=== PATIENT | male | born 1995 | race Caucasian/White ===

== ENCOUNTER 2019-01-01 22:28 | Emergency (ER) | payer SELFPAY ==
[~2019-01-01] VITALS: Ht 185.4 cm; Wt 72.5 kg
[2019-01-02] MEDS ORDERED: cefTRIAXone 1,000 MG/2.86 ml vial (IM ONLY) IM SCH (01:15)
[2019-01-02] MEDS ORDERED: LIDOCAINE 1% INJ 20 ML 20 ML VIAL INJ ONE (01:15)
[2019-01-02] MEDS ORDERED: AZITHROMYCIN 250 MG TAB (ZITHROMAX) PO ONE (01:15)
[2019-01-02] MEDS ORDERED: CEFD300C3 PO (01:18)
[2019-01-02] MEDS ORDERED: BENZ100C18 PO (01:18)
[2019-01-02] MEDS ORDERED: GUAI1TBM19 PO (01:18)
[2019-01-02] MEDS ORDERED: AZIT500T PO (01:18)
[2019-01-02] MEDS ORDERED: METH4TAB PO (01:18)
--- NOTE | 2019-01-02 01:18 | ED Cough/URI ---
General Chief Complaint: Cough/Cold/Flu Symptoms Stated Complaint: COUGHING UP MUCAS Nursing Triage Note: STATES TESTED POSITIVE FOR INFLUENZA A AND B 1 WEEK AGO AND IS NOW COUGHING UP A LOT OF MUCUS WITH A CONSTANT COUGH R/T A "TICKLE IN MY THROAT" Sepsis Screen: No Definite Risk Source: patient History of Present Illness Date Seen by Provider: Jan 01, 2019 Time Seen by Provider: 22:53 Initial Comments PT ARRIVES VIA POV FROM HOME C/O PRODUCTIVE COUGH WITH CLEAR SPUTUM FOR A WEEK HAS HAD ALOT OF NASAL DRAINAGE AND CHEST CONGESTION C/O SORE THROAT NO FEVER NO CHEST PAIN OR SHORTNESS OF BREATH GIRLFRIEND HAS SAME SYMPTOMS PT STATES HE WENT TO [facility] A WEEK AGO, AND STATES HE WAS TOLD HE HAD "INFLUENZA A AND B AND BRONCHITIS" PT STATES NO RX'S WERE GIVEN PT HAS NOT TAKEN ANY OVER THE COUNTER MEDICATIONS FOR SYMPTOMS SYMPTOMS NO DIFFERENT TONIGHT NO HISTORY OF RESPIRATORY PROBLEMS PCP: NONE. PT LIVES IN [place], [place] Allergies and Home Medications Allergies Coded Allergies: No Known Drug Allergies (Unverified , 01/01/19) Home Medications Azithromycin 500 Mg Tablet, 500 MG PO DAILY FOR INFECTION Prescribed by: JAMAL TURNER on 01/02/19117 Benzonatate 100 Mg Capsule, 1-2 TAB PO TID Prescribed by: JAMAL TURNER on 01/02/19117 Cefdinir 300 Mg Capsule, 300 MG PO BID Prescribed by: JAMAL TURNER on 01/02/19117 Guaifenesin/Dextromethorphan 1 Each Tbmp.12hr, 1 EACH PO BID Prescribed by: JAMAL TURNER on 01/02/19117 Methylprednisolone 4 Mg Tab.ds.pk, 4 MG PO UD Prescribed by: JAMAL TURNER on 01/02/19117 Patient Home Medication List Home Medication List Reviewed: Yes Review of Systems Review of Systems Constitutional: no symptoms reported; No fever EENTM: see HPI, nose congestion, throat pain Respiratory: see HPI, cough, phlegm; No short of breath, No wheezing Cardiovascular: no symptoms reported Gastrointestinal: no symptoms reported Genitourinary: no symptoms reported Musculoskeletal: no symptoms reported Skin: no symptoms reported Psychiatric/Neurological: No Symptoms Reported; Denies Headache Hematologic/Lymphatic: No Symptoms Reported Immunological/Allergic: no symptoms reported Past Yccvnfz-Qioyyu-Dxyuyi Hx Patient Social History Alcohol Use: Past History (HX OF HEAVY USE) Recreational Drug Use: Yes (METH, THC--DENIES IV USE) Drug of Choice: THC, METH--DENIES IV USE Smoking Status: Current Everyday Smoker (1 PPD) Type Used: Cigarettes (1 PPD) Recent Foreign Travel: No Contact w/Someone Who Travel: No Recent Infectious Disease Expo: No Physical Abuse: No Sexual Abuse: No Mistreated: No Fear: No Past Medical History Surgeries: No Respiratory: No Cardiac: No Neurological: No Genitourinary: No Gastrointestinal: No Musculoskeletal: No Endocrine: No HEENT: No Cancer: No Psychosocial: Yes (STATES HE WAS PLACED ON [place] 3 MONTHS AGO, WHILE HE WAS IN CARE HOME FOR "SCHIZOPHRENIA" BUT HAS NEVER FOLLOWED UP WITH ANYONE SINCE HE WAS RELEASED 3 MONTHS AGO. PER PT ON 01/01/19. PT HAS ALSO BEEN IN [facility]. ) Integumentary: No Blood Disorders: No Physical Exam Vital Signs - First Documented 01/01/19 22:33 Temp 37.2 Pulse 93 Resp 20 B/P (MAP) 130/75 (93) Pulse Ox 97 O2 Delivery Room Air Capillary Refill : Less Than 3 Seconds Height: '" Weight: lbs. oz. kg; 21.00 BMI Method: General Appearance: WD/WN, no apparent distress, thin HEENT: PERRL/EOMI, TMs normal, pharyngeal erythema; No tonsillar exudate; other (NASAL MUCOSAL EDEMA, CLEAR POST NASAL DRAINAGE. ) Neck: non-tender, full range of motion, supple, normal inspection; No lymphadenopathy (R), No lymphadenopathy (L) Respiratory: normal breath sounds, no respiratory distress, no accessory muscle use Cardiovascular: regular rate, rhythm, no murmur Gastrointestinal: soft Extremities: normal inspection, normal capillary refill Neurologic/Psychiatric: first officer II-XII nml as tested, no motor/sensory deficits, alert, normal mood/affect, oriented x 3 Skin: normal color, warm/dry Progress/Results/Core Measures Suspected Sepsis Recent Fever Within 48 Hours: No Infection Criteria Present: None New/Unexplained Altered Menta: No Sepsis Screen: No Definite Risk SIRS Temperature: Pulse: 93 Respiratory Rate: 20 Blood Pressure 130 /75 Mean: 93 Results/Orders Lab Results Laboratory Tests Test 01/01/19 23:12 Range/Units Group A Streptococcus Screen NEGATIVE NEGATIVE Micro Results Microbiology 01/01/19 Influenza Types A,B Antigen (KAREL) - Final, Complete My Orders Orders - JAMAL TURNER DO Rapid Strep A Screen (01/01/19 23:00) Influenza A And B Antigens (01/01/19 23:00) Chest Pa/Lat (2 View) (01/02/19 00:01) Ceftriaxone For Im Use (Rocephin For Im (01/02/19 01:15) Lidocaine 1% Inj 20 Ml (Xylocaine 1% Inj (01/02/19 01:15) Azithromycin Tablet (Zithromax Tablet) (01/02/19 01:15) Medications Given in ED Current Medications Medications Dose Ordered Sig/Clarice Route Start Time Stop Time Status Last Admin Dose Admin Azithromycin 500 mg ONCE ONCE PO 01/02/19 01:15 01/02/19 01:16 DC 01/02/19 01:22 500 MG Lidocaine HCl 2.1 ml ONCE ONCE INJ 01/02/19 01:15 01/02/19 01:16 DC 01/02/19 01:23 2.1 ML Vital Signs/I&O 01/01/19 01/01/19 01/02/19 22:33 22:33 01:30 Temp 37.2 37.2 Pulse 93 73 Resp 20 18 B/P (MAP) 130/75 (93) 114/74 (93) Pulse Ox 97 98 O2 Delivery Room Air Room Air Capillary Refill : Less Than 3 Seconds Blood Pressure Mean: 93 Diagnostic Imaging Comments CXR--? RLL/ RML INFILTRATES ? --PENDING RADIOLOGIST REVIEW Departure Impression Primary Impression: POSSIBLE PNEUMONIA Additional Impressions: Pharyngitis Upper respiratory infection Disposition: 01 HOME, SELF-CARE Condition: Stable Departure-Patient Inst. Referrals: [facility] Patient Instructions: Acute Bronchitis, Adult (DC), Bacterial Upper Respiratory Infection, Adult (DC), Sore Throat, Adult (DC), Pneumonia, Adult (DC) Add. Discharge Instructions: LOTS OF CLEAR LIQUIDS TYLENOL AND MOTRIN NEEDED FOR PAIN OR FEVER FOLLOW UP WITH [facility] IN 3-4 DAYS FOR FURTHER CARE All discharge instructions reviewed with patient and/or family. Voiced und erstanding. Scripts Azithromycin (Zithromax) 500 Mg Tablet 500 MG PO DAILY, #5 TAB FOR INFECTION Prov: JAMAL TURNER DO 01/02/19 Guaifenesin/Dextromethorphan (Mucinex Dm ER 1,200-60 mg Tab) 1 Each Tbmp.12hr 1 EACH PO BID for 10 Days, #20 EA Prov: JAMAL TURNER DO 01/02/19 Benzonatate (TESSALON PERLES) 100 Mg Capsule 1-2 TAB PO TID for Cough, #30 CAP Prov: JAMAL TURNER DO 01/02/19 Methylprednisolone (Medrol) 4 Mg Tab.ds.pk 4 MG PO UD, #1 PKG Prov: JAMAL TURNER DO 01/02/19 Cefdinir (Cefdinir) 300 Mg Capsule 300 MG PO BID for FOR INFECTION, #20 CAP Prov: JAMAL TURNER DO 01/02/19 JAMAL TURNER DO Jan 02, 2019 01:18
[2019-01-02 01:30] VITALS: BP 114/74
--- NOTE | 2019-01-02 06:47 | Diagnostic Imaging Report ---
Indication: Cough and dyspnea. Comparison: None. Discussion: Two views of the chest were obtained. Questionable focal infiltrate within the left lower lobe which could also represent atelectasis. No pleural fluid or pneumothorax. The right lung is well aerated. Normal heart size. No osseous abnormality. Impression: 1. Questionable early infiltrate within the left lower lobe. This is best seen on the frontal view. Dictated by: Dictated on workstation # [id number]
== END 2019-01-02 01:30 | disposition home or self-care (01) ==
LOC: ER 22:30
DX: J02.9 Acute pharyngitis, unspecified (principal); F20.9 Schizophrenia, unspecified; F17.210 Nicotine dependence, cigarettes, uncomplicated
CPT/HCPCS: 71046; 87430; 87804